=== PATIENT | male | born 1980 | race Two or more races ===

== ENCOUNTER 2025-08-26 11:59 | Emergency (ER) | payer OTHER, SELFPAY ==
[2025-08-26 12:17] VITALS: BP 157/110
[2025-08-26 13:06] LABS: Hematocrit 43.7 % (39.0-52.0); Hemoglobin 14.5 g/dL (13.0-18.0); Mean Corp Hgb Conc. 33.2 g/dL (33.0-37.0); Mean Corpuscular Volume 87.8 fL (80.0-94.0); Platelet Count 287 10^3/uL (130-400); Red Cell Dist. Width 12.8 % (11.5-14.5)
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
[2025-08-26 13:23] LABS: ALT (SGPT) 34 U/L (0-50); AST (SGOT) 31 U/L (17-59); Acetaminophen < 10 ug/ml (10-30); Albumin 4.9 g/dl (3.5-5.0); Alkaline Phosphatase 66 U/L (38-126); Blood Urea Nitrogen 16 mg/dl (9-20); Calcium 9.5 mg/dl (8.4-10.2); Carbon Dioxide 27 mmol/L (22-30); Chloride 102 mmol/L (98-107); Glucose 117 mg/dl (70-99); Potassium 4.0 mmol/L (3.5-5.1); Salicylate < 1.0 mg/dl (2.0-20.0); Sodium 136 mmol/L (135-145); Total Protein 8.3 g/dl (6.3-8.2); eGFR > 60.00
[2025-08-26 13:26] VITALS: BP 159/101
[2025-08-26 13:52] LABS: TSH 0.80 uIU/ml (0.47-4.68)
== END 2025-08-26 17:00 | disposition home or self-care (01) ==
LOC: EMR 11:59
PROVIDERS: EMERGENCY PHYSICIAN Emergency Medicine; FAMILY PHYSICIAN Family Medicine
DX: F19.10 Other psychoactive substance abuse, uncomplicated (principal); R45.850 Homicidal ideations
CPT/HCPCS: 99283; 80053; 80143; 80179; 80306; 80307; 82077; 84443; 85027; 93005